=== PATIENT | male | born 1965 | race Caucasian/White ===

== ENCOUNTER 2016-09-21 10:47 | Emergency (ER) | payer BC ==
[2016-09-21] MEDS ORDERED: SODIUM CHLORIDE 0.9% 1000ML 1,000 ML IV ONE ×2 (10:56→12:01)
[2016-09-21] MEDS ORDERED: ONDANSETRON HCL 4 MG/2 ML SOL IV ONE (10:56)
[2016-09-21 10:57] VITALS: TEMP 96.6
[2016-09-21] MEDS ORDERED: ONDANSETRON HCL 4 MG/2 ML SOL ONE (11:02)
[2016-09-21] MEDS ORDERED: ASPIRIN 81 MG CHEWABLE CTB ONE (11:02)
[2016-09-21 11:08] LABS: BASOPHILS % (AUTO) 1 % (0-3); EOSINOPHILS % (AUTO) 3 % (0-9); HEMATOCRIT 44 % (39-53); MEAN CORPUSCULAR HGB CONC 35.8 gm/dl (32.0-36.0); MEAN CORPUSCULAR VOLUME 83 fL (80-100); MONOCYTES % (AUTO) 8.5 % (0-12); NEUTROPHILS % (AUTO) 48.2 % (37-80)
[2016-09-21 11:24] LABS: ALBUMIN 3.9 gm/dl (3.4-5.0); ALT 58 IU/L (14-63); CALCIUM 9.1 mg/dl (8.5-10.1); GLOM FILT RATE 76 mL/min (>60); POTASSIUM 3.4 mMol/L (3.5-5.1); SODIUM 139 mMol/L (136-145)
[2016-09-21] MEDS ORDERED: POTASSIUM CHLORIDE 10 MEQ TER PO ONE (11:40)
[2016-09-21] MEDS ORDERED: POTASSIUM CHLORIDE 10 MEQ TER ONE (12:25)
[2016-09-21 12:34] LABS: APPEARANCE,URINE Clear; BILIRUBIN,URINE NEGATIVE (NEGATIVE); COLOR,URINE Yellow; GLUCOSE, URINE (UA) NEGATIVE (NEGATIVE); KETONES,URINE NEGATIVE (NEGATIVE); LEUKOCYTE ESTERASE ,URINE NEGATIVE (NEGATIVE); NITRATE,URINE NEGATIVE (NEGATIVE); OCCULT BLOOD,URINE NEGATIVE (NEG-TRACE); UROBILINOGEN,URINE 0.2 (0.2-1.0 EU)
[2016-09-21 12:39] LABS: HEMOGLOBIN A1C 5.9 % (4.8-6.0)
[2016-09-21 12:47] LABS: THYROID STIMULATING HORMONE 3.854 uIU/ml (0.358-3.740)
[2016-09-21 12:48] LABS: RBC,URINE NEGATIVE (0-3AV/HPF); WBC,URINE 0-1 (0-5AV/HPF)
[2016-09-21 15:07] VITALS: BP 138/80; PULSE 66; RESP 17; O2SAT 99
[2016-09-22] MEDS ORDERED: ASPIRIN EC 81 MG PO ONE (10:57)
== END 2016-09-21 15:18 | disposition home or self-care (01) ==
LOC: ED 10:47
DX: E86.0 Dehydration (principal); R61 Generalized hyperhidrosis; E87.6 Hypokalemia
CPT/HCPCS: 99285 ×3; 80053; 81001; 82150; 82962; 83036; 83690; 83735; 84443; 84484 ×2; 85025; 86140; 93005; 93880 ×2; J2405; 36415; 71010